=== PATIENT | male | born 1975 | race Caucasian/White ===

== ENCOUNTER 2016-08-21 16:26 | Emergency (ER) | payer SELFPAY ==
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
[2016-08-21] MEDS ORDERED: HYDROMORPHONE HCL INJ/PF 2 MG/ML AMPULE ONE (18:15)
[2016-08-21] MEDS ORDERED: HYDROMORPHONE HCL INJ/PF 2 MG/ML AMPULE IV PRN (18:20)
[2016-08-21] MEDS ORDERED: RINGERS SOLUTION,LACTATED 1,000 ML IV ONE (18:20)
[2016-08-21 18:29] LABS: ABSOLUTE EOSINOPHILS # (AUTO) 0.3 10^3/uL (0.0-0.6); ABSOLUTE NEUT (AUTO) 8.8 10^3/uL (1.7-8.2); BASOPHILS % (AUTO) 0.3 % (0-2); EOSINOPHILS % (AUTO) 2.4 % (0-6); HEMATOCRIT 40.9 % (37.9-51.0); HEMOGLOBIN 14.2 g/dL (13.5-17.0); HGB HCT DIFFERENCE 1.7; LYMPHOCYTES % (AUTO) 23.1 % (13-45); MEAN CORPUSCULAR HEMOGLOBIN 32.9 pg (27.0-33.4); MEAN CORPUSCULAR HGB CONC 34.7 g/dL (32.0-36.0); MEAN CORPUSCULAR VOLUME 95 fl (80-97); MONOCYTES % (AUTO) 7.6 % (3-13); RED BLOOD COUNT 4.32 10^6/uL (4.35-5.55); RED CELL DISTRIBUTION WIDTH 12.5 % (11.5-14.0); SEGMENTED NEUTROPHILS % (AUTO) 66.6 % (42-78); WHITE BLOOD COUNT 13.2 10^3/uL (4.0-10.5)
[2016-08-21] MEDS ORDERED: CEFAZOLIN 2 GM/D5W RTU 50 ML IV ONE (18:30)
[2016-08-21] MEDS ORDERED: LIDOCAINE 2% JELLY 30 ML TUBE TOP ONE (18:31)
[2016-08-21] MEDS ORDERED: SILVER SULFADIAZINE 1% CREAM 50 GM TP ONE (18:32)
[2016-08-21] MEDS ORDERED: HYDROCODONE/ACETAMINOPHEN 5-325 MG 6 TAB/DSPK PO PRN (18:33)
[2016-08-21] MEDS ORDERED: DIPH/PERTUSS(ACELL)/TETANUS VAC/PF 0.5 ML SYR (>=10YO) IM ONE (18:34)
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
[2016-08-21 18:43] LABS: ANION GAP 13 (5-19); BLOOD UREA NITROGEN 17 mg/dL (7-20); CALCIUM 9.9 mg/dL (8.4-10.2); CARBON DIOXIDE 27 mmol/L (22-30); CHLORIDE 102 mmol/L (98-107); CREATINE KINASE 133 U/L (55-170); CREATININE RESULT 1.12 mg/dL (0.52-1.25); GLUCOSE 83 mg/dL (75-110); POTASSIUM 4.4 mmol/L (3.6-5.0); SODIUM 142.2 mmol/L (137-145)
[2016-08-21 21:19] VITALS: BP 140/84
== END 2016-08-21 21:16 | disposition home or self-care (01) ==
LOC: ER 16:26
DX: T20.211A Burn of second degree of right ear [any part, except ear drum], initial encounter (principal); T22.251A Burn of second degree of right shoulder, initial encounter; T22.261A Burn of second degree of right scapular region, initial encounter; T31.0 Burns involving less than 10% of body surface; F17.200 Nicotine dependence, unspecified, uncomplicated; X01.8XXA Other exposure to uncontrolled fire, not in building or structure, initial encounter; Y93.H3 Activity, building and construction; Y99.0 Civilian activity done for income or pay; Z23 Encounter for immunization
CPT/HCPCS: 96376; 99283; 90471; 96375; 96365; 96368; 36415; 82550; 85025; 80048; 90715; J1170; J3490; J7120; J0690

== ENCOUNTER 2016-11-25 09:27 | Emergency (ER) | payer SELFPAY ==
[2016-11-25] MEDS ORDERED: PREDNISONE 20 MG TABLET PO ONE (10:30)
[2016-11-25] MEDS ORDERED: FAMOTIDINE 20 MG TABLET PO ONE (10:30)
[2016-11-25] MEDS ORDERED: DOXYCYCLINE HYCLATE 100 MG TABLET PO ONE (10:30)
[2016-11-25] MEDS ORDERED: IBUPROFEN 800 MG TABLET PO ONE (10:30)
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
[2016-11-25 11:27] VITALS: BP 108/74
== END 2016-11-25 11:20 | disposition home or self-care (01) ==
LOC: ER 09:27
DX: L03.119 Cellulitis of unspecified part of limb (principal); S90.569A Insect bite (nonvenomous), unspecified ankle, initial encounter; T63.301A Toxic effect of unspecified spider venom, accidental (unintentional), initial encounter; F17.210 Nicotine dependence, cigarettes, uncomplicated
CPT/HCPCS: 99281; J7512